=== PATIENT | female | born 1985 | race Caucasian/White ===

== ENCOUNTER 2017-05-03 11:26 | Emergency (ER) | payer SELFPAY ==
[~2017-05-03] VITALS: Ht 157.5 cm; Wt 53.0 kg
[2017-05-03] MEDS ORDERED: KETOROLAC 60MG/2ML VIAL IM ONE (16:15)
[2017-05-03 16:26] VITALS: BP 105/57
== END 2017-05-03 16:50 | disposition home or self-care (01) ==
LOC: ER 13:38
DX: M54.2 Cervicalgia (principal); R51 Headache; M25.512 Pain in left shoulder; M25.511 Pain in right shoulder; M79.1 Myalgia
CPT/HCPCS: 81025; 96372; 99283; J1885; Z7610